=== PATIENT | male | born 1955 | race Caucasian/White ===

== ENCOUNTER → 2021-06-25 | Outpatient (CLI) | payer BC | END | disposition home or self-care (01) | LOC: LAB SHORT 15:10 → LAB 15:10 | DX: N39.0 Urinary tract infection, site not specified (principal) | CPT/HCPCS: 87077; 87086; 87186 ==

== ENCOUNTER 2022-09-04 08:13 | Inpatient (IN) | payer OTHER ==
[~2022-09-04] VITALS: Ht 177.8 cm; Wt 97.3 kg
[2022-09-04 08:55] LABS: Calcium, Ionized (POC) 1.14 mmol/L (1.10-1.46); Chloride (POC) 102 mmol/L (98-108); Glucose (ISTAT POC) 128 mg/dL (70-99); Hemoglobin (POC) 15.3 g/dL (13.5-17.5); Sodium (POC) 138 mmol/L (135-148); Total CO2 (POC) 24 mmol/L (21-32)
[2022-09-04 09:01] LABS: BASOPHILS ABSOLUTE AUTO 0.05 K/mm3 (0.00-0.23); BASOPHILS PERCENT AUTO 0 % (0-2); EOSINOPHILS ABSOLUTE AUTO 0.08 K/mm3 (0.00-0.68); EOSINOPHILS PERCENT AUTO 1 % (0-6); Hemoglobin 14.6 g/dL (13.5-17.5); IMMATURE GRAN ABSOLUTE AUTO 0.05 K/mm3 (0.00-0.10); IMMATURE GRAN PERCENT AUTO 0 % (0-1); LYMPHOCYTES ABSOLUTE AUTO 0.67 K/mm3 (0.84-5.20); LYMPHOCYTES PERCENT AUTO 6 % (21-46); MONOCYTES ABSOLUTE AUTO 1.13 K/mm3 (0.16-1.47); MONOCYTES PERCENT AUTO 10 % (4-13); Mean Corpuscular HGB 30.8 pg (26.0-34.0); Mean Corpuscular HGB Conc 33.2 g/dL (31.5-36.5); Mean Corpuscular Volume 93 fL (80-100); Mean Platelet Volume 11.3 fL (9.1-12.4); NEUTROPHILS ABSOLUTE AUTO 9.97 K/mm3 (1.96-9.15); NEUTROPHILS PERCENT AUTO 83 % (41-73); Platelet Count 191 K/mm3 (150-400); RDW Coefficient Variation 12.1 % (11.7-14.2); RDW Standard Deviation 41.9 fL (35.1-46.3); Red Blood Cell Count 4.74 M/mm3 (4.30-5.90); White Blood Cell Count 11.95 K/mm3 (4.00-11.30)
[2022-09-04 09:16] LABS: International Normalized Ratio 1.15
[2022-09-04 09:19] LABS: Albumin, Blood 3.4 g/dL (3.4-5.0); Albumin/Globulin Ratio 0.9 (0.8-1.8); Bun/Creatinine Ratio 13.7 (12.0-20.0); Calcium, Blood 8.9 mg/dL (8.5-10.1); Creatinine, Blood 0.95 mg/dL (0.60-1.20); Globulin, Blood 3.7 g/dL (2.2-4.0); Total Protein, Blood 7.1 g/dL (6.4-8.2)
[2022-09-04] MEDS ORDERED: AMLODIPINE BESYL5 MG PO (09:20)
[2022-09-04] MEDS ORDERED: LISI20 PO (09:20)
[2022-09-04] MEDS ORDERED: ATORVASTATIN CA20 MG PO (09:20)
[2022-09-04] MEDS ORDERED: METO100ER PO (09:21)
--- NOTE | 2022-09-04 10:23 | NUR ---
ADMISSION: pt arrived to ICU 14 from [employer] at 1023. Pt awake and alert. Speaking in full sentances. Denies chest pain at this time. Right radial access is clean and dry.
--- NOTE | 2022-09-04 11:24 | NUR ---
UPDATE: Dr Ronquillo requesting RN call hospitalist to manage patient. Red Novak SPD MANAGER called and notified of pt and current status. States he will come see pt this afternoon.
--- NOTE | 2022-09-04 12:38 | NUR ---
TRANSFER REPORT: Report called and given to IAN Mathew at [facility].
--- NOTE | 2022-09-04 13:35 | NUR ---
DEPARTURE: Pt left hospital with EMS. He was alert and oriented; NAD. IV heparin and amio infusing per EMAR. Report given to engineering director at bedside. Belongings given to .
[2022-09-04 13:59] LABS: Influenza A, PCR NEGATIVE (NEGATIVE); Influenza B, PCR NEGATIVE (NEGATIVE); Resp Syncytial Virus, PCR NEGATIVE (NEGATIVE); SARS-Cov-2 (COVID-19) PCR, MMC NEGATIVE (NEGATIVE)
== END 2022-09-04 13:35 | disposition short-term general hospital (02) | DRG 280 ==
LOC: ER 08:13 → ICUW 09:00
PROVIDERS: Nurse Practitioner Acute Care; Student in an Organized Health Care Education/Training Program; ADMIT Internal Medicine Cardiovascular Disease
PROC: 4A023N7 Measurement of Cardiac Sampling and Pressure, Left Heart, Percutaneous Approach (ICD-10-PCS; principal; 2022-09-04)
PROC: B2111ZZ Fluoroscopy of Multiple Coronary Arteries using Low Osmolar Contrast (ICD-10-PCS; 2022-09-04)
DX: I21.4 Non-ST elevation (NSTEMI) myocardial infarction (principal); I50.31 Acute diastolic (congestive) heart failure; Z95.5 Presence of coronary angioplasty implant and graft; I25.10 Atherosclerotic heart disease of native coronary artery without angina pectoris; E78.5 Hyperlipidemia, unspecified; Z98.890 Other specified postprocedural states; Z79.899 Other long term (current) drug therapy; I48.91 Unspecified atrial fibrillation; I95.9 Hypotension, unspecified; I11.0 Hypertensive heart disease with heart failure; I25.2 Old myocardial infarction; Z20.822 Contact with and (suspected) exposure to COVID-19
CPT/HCPCS: 0241U; 36415; 71045; 76937; 80047; 80053; 83036; 83735; 83880; 84484; 85014; 85025; 85520; 85610; 85730; 86850; 86900; 86901; 93005; 93010; 93458; 99152; A9270; C1769; C1887; C1894; C8929; J0282; J1644; J2250; J3010; J7030; J7050; J7060; Q9957; Q9967